=== PATIENT | female | born 1990 | race Caucasian/White ===

== ENCOUNTER 2018-02-06 15:31 | Outpatient (CLI) | payer BC ==
[2018-02-06 16:33] LABS: Appearance,Urine Cloudy (Clear); Bacteria,Urine Many /hpf; Bilirubin,Urine Negative (Negative); Blood,Urine Negative (Negative); Color,Urine Light Yellow; Glucose,Urine (UA) Negative (Negative); Ketones,Urine Negative (Negative); Leukocyte Esterase,Urine Small (Negative); Mucus,Urine Rare /hpf; Nitrite,Urine Negative (Negative); Protein,Urine Negative (Negative); RBC,Urine <1 /hpf (0-5); Specific Gravity,Urine 1.005 (1.001-1.035); Squamous Epithelial Cell,Urine 6 /hpf (0-4); Urobilinogen,Urine <2.0 mg/dL (<2.0); WBC,Urine 2 /hpf (0-5)
[2018-02-06 17:44] VITALS: BP 129/72; PULSE 85; RESP 16; TEMP 97.3
--- NOTE | 2018-03-06 12:56 | P.MSEPDOC ---
Presenting Problems - Arrival Data Date of Arrival on Unit: 02/06/18 Time of Arrival on Unit: 15:31 Mode of Transport: Ambulatory - Complaint OB-Reason for Admission/Chief Complaint: Pain Comment: patient presented to triage with complaints of cramping since 929 Medical History - Information : 2 Para: 1 Term: 1 : 0 Abortions: Spontaneous or Elective: 0 Number of Living Children: 1 - Gestational Age Gestational Age by LIDIA (wks/days): 32 Weeks and 1 Days Review of Systems - Review of Systems Constitutional: No problems Breast: No problems ENT: No problems Cardiovascular: No problems Respiratory: No problems Gastrointestinal: No problems Genitourinary: No problems Musculoskeletal: No problems Neurological: No problems Skin: No problems Vital Signs - Temperature Temperature: 97.3 F Temperature Source: Temporal Artery Scan - Pulse Right Brachial Pulse Rate: 85 Pulse Assessment Method: Automatic Cuff - Respirations Respiratory Rate: 16 Oxygen Delivery Method: Room Air O2 Sat by Pulse Oximetry: 99 - Blood Pressure Right Arm Blood Pressure: 129/72 Blood Pressure Mean: 91 Blood Pressure Source: Automatic Cuff Medical Screen Scoring (Pre) - Cervical Exam Dilation: 0 cm = 0 Effacement: More than 50% = 2 Membranes: Intact - Uterine Contractions Frequency: N/A Duration: N/A Intensity: N/A - Maternal Vital Signs Maternal Temperature: N/A Maternal Blood Pressure: N/A Signs of Preeclampsia: N/A Maternal Respirations: N/A - Pain Assessment Pain Location and Character: Lower, Abdomen Pain Scale Used: Numeric (1 - 10) Pain Intensity: 3 Pain Description: *Acute, Cramping Pain Radiation Location: none Pain Frequency: Intermittent Pain Duration: 6 Pain Duration Units: Hours Pain Behavior: None Exhibited Pain Aggravating Factors: None - Maternal Trauma Maternal Trauma: N/A - Assessment Baseline FHR: 130 Heart Rate - NICHD Category: Category I (Normal) = 0 NST: Reactive Position: N/A Station: N/A - Total Score Total Score (Pre): 2 - Level of Risk Level of Risk: Low (0-5) Physician Notification (Pre) - Physician Notified Physician Notified Date: 02/06/18 Physician Notified Time: 16:35 Physician/Practitioner Notifed:: Dr. Caballero Spoke With: Dr. Caballero New Order Received: Yes - Notification Comment Comment: Dr. Day notified of cervical exam, reactive NST, no contractions noted, UA results given. Order to send for urine culture received. Discharge patient home on pelvic rest. Patient instructed to call office tomorrow if patient is still symptomatic. Disposition - Disposition OB Disposition: Discharge to home Discharge Date: 02/06/18 Discharge Time: 17:00 I agree with the RN Medical Screening Exam: Yes Risk & Benefit of care provided described in d/c instruction: Yes Diagnosis: FALSE LABOR BEFORE 37 COMPLETED WEEKS OF GEST, SECOND TRI
== END 2018-02-06 17:00 | disposition home or self-care (01) ==
LOC: MERGE 15:31 → FBPOP 15:31
PROVIDERS: ATTEND Obstetrics & Gynecology
DX: O47.02 False labor before 37 completed weeks of gestation, second trimester (principal); Z3A.32 32 weeks gestation of pregnancy
CPT/HCPCS: 59025; 81001; 82731; 87086; 99213

== ENCOUNTER 2018-03-26 19:34 | Outpatient (CLI) | payer BC ==
[2018-03-26 20:28] VITALS: BP 126/71; PULSE 76; RESP 16; TEMP 97.6
--- NOTE | 2018-04-26 11:38 | P.MSEPDOC ---
Presenting Problems - Arrival Data Date of Arrival on Unit: 03/26/18 Time of Arrival on Unit: 19:35 Mode of Transport: Ambulatory - Complaint OB-Reason for Admission/Chief Complaint: Possible Onset of Labor Comment: Patients states she has been having contractions since 17:00 today. Medical History - Information : 2 Para: 1 Term: 1 : 0 Abortions: Spontaneous or Elective: 0 Number of Living Children: 1 - Gestational Age Gestational Age by LIDIA (wks/days): 39 Weeks and 0 Days Review of Systems - Review of Systems Constitutional: No problems Breast: No problems ENT: Cough Cardiovascular: No problems Respiratory: No problems Gastrointestinal: No problems Genitourinary: No problems Musculoskeletal: No problems Neurological: No problems Skin: No problems Vital Signs - Temperature Temperature: 97.6 F Temperature Source: Temporal Artery Scan - Pulse Right Brachial Pulse Rate: 76 Pulse Assessment Method: Automatic Cuff - Respirations Respiratory Rate: 16 Oxygen Delivery Method: Room Air O2 Sat by Pulse Oximetry: 99 - Blood Pressure Right Arm Blood Pressure: 126/71 Blood Pressure Mean: 89 Blood Pressure Source: Automatic Cuff Medical Screen Scoring (Pre) - Cervical Exam Dilation: 1-3 cm = 1 Membranes: Intact - Uterine Contractions Frequency: > 5 minutes apart = 1 - Pain Assessment Pain Location and Character: Lower, Abdomen Pain Scale Used: Numeric (1 - 10) Pain Intensity: 2 Pain Management Goal: 0 Pain Description: *Acute, Cramping Pain Radiation Location: NONE Pain Frequency: Intermittent Pain Duration: 3 Pain Duration Units: Hours Pain Behavior: None Exhibited Pain Aggravating Factors: Contractions - Assessment Baseline FHR: 135 Heart Rate - NICHD Category: Category I (Normal) = 0 NST: Reactive - Total Score Total Score (Pre): 2 - Level of Risk Level of Risk: Low (0-5) Physician Notification (Pre) - Physician Notified Physician Notified Date: 03/26/18 Physician Notified Time: 20:14 Physician/Practitioner Notifed:: Dr. Castillo Spoke With: Dr. Castillo New Order Received: Yes - Notification Comment Comment: Physician states that patient can go home with instructions for kick count, and if contractions increase in strength or duration she is to return to hospital. Disposition - Disposition OB Disposition: Discharge to home, Written follow up instructions reviewed Discharge Date: 03/26/18 Discharge Time: 20:25 I agree with the RN Medical Screening Exam: Yes Risk & Benefit of care provided described in d/c instruction: Yes Diagnosis: FALSE LABOR AT OR AFTER 37 COMPLETED WEEKS OF GESTATION
== END 2018-03-26 20:30 | disposition home or self-care (01) ==
LOC: FBPOP 19:34
PROVIDERS: ATTEND Obstetrics & Gynecology
DX: O47.1 False labor at or after 37 completed weeks of gestation (principal); Z3A.39 39 weeks gestation of pregnancy
CPT/HCPCS: 59025; 99213

== ENCOUNTER 2018-04-02 05:56 | Inpatient (IN) | payer BC ==
[2018-04-02] MEDS ORDERED: OXYTOCIN 10 UNIT/ML 1 ML VIAL IM PRN (06:06)
[2018-04-02] MEDS ORDERED: METHYLERGONOVINE 0.2 MG/ML 1 ML AMP IM PRN (06:06)
[2018-04-02] MEDS ORDERED: TERBUTALINE 1 MG/ML VIAL SQ PRN (06:06)
[2018-04-02] MEDS ORDERED: CARBOPROST TROMETHAMINE 250 MCG/ML 1 ML AMP IM PRN (06:06)
[2018-04-02] MEDS ORDERED: LIDOCAINE 0.5% (PF) 5 MG/ML (50 ML SDV) SQ PRN (06:06)
[2018-04-02 06:13] VITALS: BMI 36.1
[2018-04-02 06:30] LABS: Anisocytosis Slight; Basophils % (A) 0 %; Eosinophils # (A) 0.2 k/uL (0-0.7); Eosinophils % (A) 1 %; HCT 36.8 % (34.0-46.0); HGB 12.1 gm/dL (11.4-16.0); Lymphocytes # (A) 3.1 k/uL (1.0-4.8); Lymphocytes % (A) 24 %; Mean Platelet Volume 9.1; Monocytes # (A) 0.5 k/uL (0-1.0); Monocytes % (A) 4 %; Neutrophils # (A) 8.8 k/uL (1.3-7.7); Neutrophils % (A) 68 %; Platelet Count 242 k/uL (150-450); RBC 4.49 m/uL (3.80-5.40); RDW 16.3 % (11.5-15.5); WBC 12.8 k/uL (3.8-10.6)
[2018-04-02] MEDS ORDERED: OXYTOCIN 20 UNITS/1000 ML NS 1,000 ML IV SCH (07:00)
--- NOTE | 2018-04-02 07:52 | P.HPOB ---
History of Present Illness H&P Date: 04/02/18 This is a 28-year-old white female 2 para 1001 EDC 04/02/2018 at 40 weeks gestation. Patient presents today for induction. is essentially unremarkable, please see below. Fetus is been active throughout the . She denies fluid leakage or vaginal bleeding. Past medical history is significant for anxiety and depression. Past surgical history significant for cholecystectomy in 2009. Current medications vitamins. ALLERGIES none known. Family history is significant for diabetes, emphysema, lung cancer, and COPD. Obstetric history is significant for vaginal delivery 7 lbs. 8 oz. female infant in 2009. Social history patient is , she has never been a smoker, she denies alcohol or drug use. history is significant for blood type O positive, rubella status immune. VDRL testing, urine culture, hepatitis B surface antigen, HIV testing, gonorrhea and chlamydia cultures all negative. One-hour Glucola 91. Group B strep cultures negative. On exam this is a pleasant white female, 5 foot 6 inches 220 pounds, blood pressure 135/70 on admission, patient is afebrile. Gen. physical exam is within normal limits. Extremities reveal no edema. Cervix is 3 cm dilated, 60 % effaced, -2 station, vertex presentation. Artificial amniorrhexis reveals clear fluid. heart rate is consistent with reactive NST. There are small variable decelerations noted. Uterine contractions currently occurring every 4-5 minutes apart of very mild intensity. Impression: 40 week intrauterine , here for induction of labor with all signs reassuring. Plan: Continue close maternal and surveillance. Oxytocin per hospital protocol. Anticipating normal spontaneous vaginal delivery. Review of Systems Constitutional: Reports as per HPI Past Medical History Past Medical History: No Reported History Additional Past Medical History / Comment(s): anxiety and depression History of Any Multi-Drug Resistant Organisms: None Reported Past Surgical History: Cholecystectomy Past Anesthesia/Blood Transfusion Reactions: No Reported Reaction Past Psychological History: Anxiety, Depression Smoking Status: Never smoker Past Alcohol Use History: None Reported Past Drug Use History: None Reported - Past Family History Mother Family Medical History: Diabetes Mellitus Medications and Allergies Home Medications Medication Instructions Recorded Confirmed Type Pnv No.95/Ferrous Fum/Folic AC 1 each PO DAILY 02/06/18 04/02/18 History [ Multivitamin Tablet] Allergies Allergy/AdvReac Type Severity Reaction Status Date / Time ciprofloxacin [From Cipro] AdvReac Rash/Hives Verified 04/02/18 06:02 Exam Vital Signs Temp Pulse Resp BP Pulse Ox 04/02/18 06:00 97.9 F 97 16 135/70 98 Intake and Output 04/01/18 04/02/18 04/02/18 22:59 06:59 14:59 Other: # Voids 1 Weight 224 kg See dictation under HPI please Results Result Diagrams: 04/02/18 06:15 Abnormal Lab Results - Last 24 Hours (Table) 04/02/18 Range/Units 06:15 WBC 12.8 H (3.8-10.6) k/uL RDW 16.3 H (11.5-15.5) % Neutrophils # 8.8 H (1.3-7.7) k/uL Assessment and Plan Assessment: 40 week intrauterine , here for induction of labor. All signs reassuring. Plan: Continue close maternal and surveillance. Oxytocin per hospital protocol. Anticipating normal spontaneous vaginal delivery. Time with Patient: Less than 30
[2018-04-02] MEDS: LACTATED RINGERS 1,000 ML IV SCH ×4 (13:45→22:30)
[2018-04-02] MEDS ORDERED: SODIUM CHLORIDE 0.9% 100 ML BAG ONE (13:55)
[2018-04-02] MEDS ORDERED: fentaNYL (PF) 50 MCG/ML 5 ML AMP ONE (13:55)
[2018-04-02] MEDS ORDERED: ROPIVACAINE 5MG/ML 20ML VIAL ONE (13:55)
[2018-04-02] MEDS ORDERED: ONDANSETRON 4 MG/2 ML VIAL IVP STA (16:40)
[2018-04-02] MEDS ORDERED: LACTATED RINGERS 1,000 ML IV ONE (19:09)
[2018-04-02] MEDS ORDERED: ceFAZolin IN SWFI 2 GM/20 ML SYRINGE IVP ONE (19:09)
[2018-04-02] MEDS ORDERED: CITRIC ACID-SODIUM CITRATE 15 ML CUP PO ONE (19:09)
[2018-04-02] MEDS ORDERED: DEXAMETHASONE SOD PHOS (MDV) 100 MG/10 ML VIAL ONE (19:26)
[2018-04-02] MEDS ORDERED: KETOROLAC 30 MG/ML 1 ML VIAL ONE (19:26)
[2018-04-02] MEDS ORDERED: OXYTOCIN 10 UNIT/ML 1 ML VIAL ONE (19:26)
[2018-04-02] MEDS ORDERED: ceFAZolin 1,000 MG VIAL ONE (19:26)
[2018-04-02] MEDS ORDERED: ONDANSETRON 4 MG/2 ML VIAL ONE (19:26)
[2018-04-02] MEDS ORDERED: KETOROLAC 30 MG/ML 1 ML VIAL IVP PRN (20:16)
[2018-04-02] MEDS ORDERED: ACETAMINOPHEN TAB 325 MG TAB PO PRN (20:16)
[2018-04-02] MEDS ORDERED: ONDANSETRON 4 MG/2 ML VIAL IVP PRN (20:16)
[2018-04-02] MEDS ORDERED: diphenhydrAMINE 25 MG CAP PO PRN (20:16)
[2018-04-02] MEDS ORDERED: NALOXONE 0.4 MG/ML 1 ML VIAL IV PRN (20:16)
[2018-04-02] MEDS ORDERED: ZOLPIDEM 5 MG TAB PO PRN (20:16)
[2018-04-02] MEDS ORDERED: METOCLOPRAMIDE 5 MG/ML 2 ML VIAL IVP PRN (20:16)
[2018-04-02] MEDS ORDERED: diphenhydrAMINE 50 MG/ML 1 ML VIAL IVP PRN ×2 (20:16)
[2018-04-02] MEDS ORDERED: diphenhydrAMINE 50 MG CAP PO PRN (20:16)
--- NOTE | 2018-04-02 20:16 | P.OP ---
Date of Procedure: 04/02/18 Preoperative Diagnosis: Arrest of dilatation and descent, 40 weeks gestation Postoperative Diagnosis: Left occiput transverse, nuchal cord 1 Procedure(s) Performed: Primary low transverse section Anesthesia: epidural Surgeon: [employer] Principal #1: Jackson Garcia Estimated Blood Loss (ml): 500 IV fluids (ml): 600 Urine output (ml): 100 Pathology: none sent Condition: stable Disposition: PACU Indications for Procedure: arrest of dilation and descent Description of Procedure: Patient is brought to the operating suite where the previously placed epidural was topped off per anesthesia. She's placed in the dorsal supine position with left lateral uterine displacement. The abdomen is prepped and draped in usual sterile fashion. The appropriate timeout is performed to assure proper patient and procedural identification. The analgesia is checked and noted to be adequate. A low transverse skin incision is made in this is carried down through the subcutaneous tissue to the fascia. Fascia is isolated, scored and extended bilaterally with curved Macias scissors. Peritoneum is next identified and incised, there is no bowel or bladder involvement. The bladder blade is placed over the dome of the bladder and at all times the bladder is Well from the operative field to avoid bladder and/or ureteral injury. A low transverse uterine incision is made and carried down through the myometrium into the endometrial cavity. The incision is extended with blunt dissection in a transverse fashion. 's head is delivered left occiput transverse. There is a nuchal cord 1 that is reduced. Patient is officially delivered of a liveborn male infant at 1937 hours. Umbilical cord is doubly clamped and ligated. He is handed to waiting nurses for evaluation where scores of 9 and 9 at one and 5 minutes respectively are given. Cord blood is sent to the lab for evaluation. The placenta is delivered manually, it is inspected and noted to be intact with trivascular cord at 1938 hours. Uterus is then massaged and externalized. Oxytocin is given. Antibiotics are given. The uterus is swept clean with a sterile sponge to avoid any retained products of conception. The uterus is closed in a two- step fashion. First layer is running locking 0 Vicryl. Second layer is imbricated with 0 Vicryl. Excellent reapproximation is noted. Both tubes and ovaries are identified and noted to be within normal limits. No uterine defects are appreciated, no fibroids. No evidence of endometriosis. The abdomen is suctioned with suction on guard and the uterus is placed back into the abdominal cavity. Bilateral gutters are inspected and cleaned. Again hemostasis on the uterine closure is excellent. Peritoneum was allowed to close by secondary intention. Fascia is closed in a running stitch with 0 Vicryl, over ligation in the midline. Subcutaneous tissue is inspected, irrigated, noted to be clean and dry. It is reapproximated using 3-0 Vicryl in a running fashion. 4-0 undyed Monocryl issues for final subcuticular closure of the skin. Steri-Strips and Mastisol are applied to the wound. Dressing is placed. Morgan is noted to be draining clear urine. Patient is brought back to the recovery room in very good condition with stable vital signs, blood pressure 132/70, pulse 78, 100% O2 saturation. Infant weighs 3200 g or 7 lbs. 1 oz.
[2018-04-03] MEDS: LACTATED RINGERS 1,000 ML IV SCH ×2 (04:09→22:19)
--- NOTE | 2018-04-03 07:49 | P.PN ---
Subjective Progress Note Date: 04/03/18 Positive flatus. Pain well controlled. No complaints Objective - Vital Signs Vital signs: Vital Signs Temp 98.2 F 04/03/18 07:42 Pulse 69 04/03/18 07:42 Resp 16 04/03/18 07:42 BP 122/69 04/03/18 07:42 Pulse Ox 98 04/03/18 07:42 Intake & Output 04/02/18 04/03/18 04/03/18 18:59 06:59 18:59 Intake Total 1000 600 Output Total 150 1400 Balance 850 -800 Weight 101.605 kg Intake: IV 600 Intake, IV Titration 1000 Amount Lactated Ringers 1,000 ml 1000 @ 125 mls/hr IV .Q8H SOUMYA Rx#:[id number] Output: Urine 150 900 Straight 150 200 Estimated Blood Loss 500 Other: # Voids 3 - Constitutional General appearance: Present: average body habitus, cooperative - EENT Eyes: Present: PERRLA ENT: Present: hearing grossly normal - Neck Thyroid: bilateral: normal size - Respiratory Respiratory: bilateral: CTA - Cardiovascular Rhythm: regular - Gastrointestinal Gastrointestinal Comment(s): Incision clean and dry, intact, Steri-Strips applied. Fundus firm, mobile, symmetric, 18 week size. General gastrointestinal: Present: normal bowel sounds - Integumentary Integumentary: Present: normal - Neurologic Neurologic: Present: CNII-XII intact - Musculoskeletal Musculoskeletal: Present: gait normal, strength equal bilaterally - Psychiatric Psychiatric: Present: A&O x's 3, intact judgment & insight - Labs CBC & Chem 7: 04/02/18 06:15 Assessment and Plan Assessment: Postoperative day #1, doing well. Plan: Advance diet and activity. DC IV. May shower. Likely discharge home tomorrow. Time with Patient: Less than 30
[2018-04-03 08:09] LABS: Anisocytosis Slight; Basophils % (A) 0 %; Eosinophils % (A) 0 %; HCT 28.7 % (34.0-46.0); Lymphocytes # (A) 1.9 k/uL (1.0-4.8); Lymphocytes % (A) 11 %; MCH 27.9 pg (25.0-35.0); MCHC 33.6 g/dL (31.0-37.0); Mean Platelet Volume 9.6; Monocytes # (A) 0.6 k/uL (0-1.0); Monocytes % (A) 4 %; Neutrophils # (A) 14.3 k/uL (1.3-7.7); Neutrophils % (A) 84 %; Platelet Count 213 k/uL (150-450); RBC 3.46 m/uL (3.80-5.40); RDW 16.4 % (11.5-15.5)
[2018-04-03 08:11] LABS: HGB 9.7 gm/dL (11.4-16.0)
[2018-04-03] MEDS: IBUPROFEN 600 MG TAB PO PRN ×2 (10:01→19:53)
[2018-04-03] MEDS: SENNOSIDES-DOCUSATE SODIUM 1 EACH TAB PO SCH ×2 (10:03→22:20)
[2018-04-04] MEDS: HYDROcodone/APAP 5-325MG 1 EACH TAB PO PRN ×2 (02:47→08:47)
--- NOTE | 2018-04-04 07:40 | P.DS ---
Providers Date of admission: 04/02/18 05:56 Expected date of discharge: 04/04/18 Attending physician: Merlene Garcia Primary care physician: Barrera Noman [facility] Course: This is a 28-year-old white female 2 para 1001 EDC 04/02/2018 at 40 weeks gestation. Patient was admitted for induction with favorable multiparous cervix. was remarkable for group B strep cultures negative, rubella status immune, blood type O+. Please see dictated history and physical for details. Artificial amniorrhexis revealed clear fluid. She progressed through labor but had arrest of dilatation and descent at 5 cm. Decision was made to proceed with primary low transverse section. She delivered a liveborn male infant with scores of 9 and 9 at one and 5 minutes respectively. Infant was in the left occiput transverse position and had a nuchal cord 1. He weighed 7 lbs. 1 oz. or 3200 g. The was an estimated blood loss recorded of 500 mL's. Please see my dictated delivery note for details. This morning the patient is doing well. She is voiding, ambulating and passing flatus without difficulty. Vital signs are stable and she is afebrile. Fundus is firm and in the midline, symmetric and 18 week size. Breasts are not engorged. Breast-feeding is going well. Incision is clean and dry, Steri- Strips applied. Extremities reveal +1 edema. Incision has been performed on the infant. Patient is being discharged home in very good condition. She will follow-up with me in the office in 2 weeks for incision check. I have reminded her no intercourse, tampons or douching. She will use [id number] Advil or Aleve , or Motrin as needed for pain. I've asked her to call me with any fevers shakes or chills, foul smelling or copious lochia, with the passage of large blood clots, or indeed with any difficulties or concerns. We have briefly discussed options for contraception and she will contemplate these options, we will discuss this further in the office. Patient Condition at Discharge: Good Plan - Discharge Summary Discharge Rx Participant: No New Discharge Prescriptions: No Action Pnv No.95/Ferrous Fum/Folic AC [ Multivitamin Tablet] 1 each PO DAILY Discharge Medication List Pnv No.95/Ferrous Fum/Folic AC [ Multivitamin Tablet] 1 each PO DAILY [History] Follow up Appointment(s)/Referral(s): Merlene Garcia MD [STAFF PHYSICIAN] - 2 Weeks Discharge Disposition: HOME SELF-CARE
[2018-04-04 07:58] VITALS: BP 112/72; PULSE 92; RESP 16; TEMP 98.2
[2018-04-04] MEDS: SENNOSIDES-DOCUSATE SODIUM 1 EACH TAB PO SCH ×2 (08:45→08:50)
== END 2018-04-04 14:40 | disposition home or self-care (01) | DRG 788 ==
LOC: 4FBP 05:56
PROVIDERS: ADMIT Obstetrics & Gynecology; ATTEND Obstetrics & Gynecology
PROC: 10D00Z1 Extraction of Products of Conception, Low, Open Approach (ICD-10-PCS; 2018-04-02)
PROC: 10907ZC Drainage of Amniotic Fluid, Therapeutic from Products of Conception, Via Natural or Artificial Opening (ICD-10-PCS; 2018-04-02)
PROC: 3E033VJ Introduction of Other Hormone into Peripheral Vein, Percutaneous Approach (ICD-10-PCS; principal; 2018-04-02 19:33)
DX: O62.0 Primary inadequate contractions (principal); Z3A.40 40 weeks gestation of pregnancy; O69.81X0 Labor and delivery complicated by cord around neck, without compression, not applicable or unspecified; O32.2XX0 Maternal care for transverse and oblique lie, not applicable or unspecified; O99.344 Other mental disorders complicating childbirth; F32.9 Major depressive disorder, single episode, unspecified; F41.9 Anxiety disorder, unspecified; Z37.0 Single live birth; Z90.49 Acquired absence of other specified parts of digestive tract; Z88.1 Allergy status to other antibiotic agents
CPT/HCPCS: 85025; 86850; 86900; 86901